=== PATIENT | female | born 2000 | race Caucasian/White ===

== ENCOUNTER 2019-04-10 19:57 | Emergency (ER) | payer OTHER ==
[~2019-04-10] VITALS: Ht 165.1 cm; Wt 82.6 kg
[2019-04-10 21:15] LABS: BASOPHILS # (AUTO) 0.09 x10^3/uL (0-0.3); BASOPHILS % (AUTO) 1 % (0-1); EOSINOPHILS % (AUTO) 2 % (1-7); LYMPHOCYTES # (AUTO) 2.49 x10^3/uL (1-6.1); LYMPHOCYTES % (AUTO) 20 % (22-44); MD NO; MEAN CORPUSCULAR HEMOGLOBIN 28.8 pg (27.0-34.8); MEAN CORPUSCULAR VOLUME 87.3 fL (80-100); MEAN PLATELET VOLUME 8.7 fL (7.4-10.4); MONOCYTES # (AUTO) 0.99 x10^3/uL (0-1.4); MONOCYTES % (AUTO) 8 % (2-9); NEUTROPHILS # (AUTO) 8.57 x10^3/uL (1.8-8.0); NEUTROPHILS % (AUTO) 69 % (42-75); PLATELET COUNT 322 x10^3/uL (130-400); RED BLOOD COUNT 5.07 x10^6/uL (3.82-5.3); RED CELL DISTRIBUTION WIDTH 14.9 % (9.6-15.2)
[2019-04-10 21:23] LABS: ALANINE AMINOTRANSFERASE 31 U/L (12-78); ANION GAP 5 mmol/L (5-15); CALCIUM 9.3 mg/dL (8.5-10.1); CHLORIDE 109 mmol/L (98-107); CREATININE 0.69 mg/dL (0.55-1.02)
[2019-04-10 21:27] LABS: CULTURE INDICATED? YES; MICROSCOPIC INDICATED
[2019-04-10 21:27] LABS: ALKALINE PHOSPHATASE 131 U/L (45-117); BILIRUBIN,TOTAL 0.4 mg/dL (0.2-1.0); TOTAL PROTEIN 8.7 g/dL (6.4-8.2)
--- NOTE | 2019-04-10 22:15 | NUR ---
pt to room from lobby
[2019-04-10 22:41] VITALS: BP 125/75
--- NOTE | 2019-04-10 22:41 | NUR ---
MONITORING EQUIPMENT APPLIED. ALL VITALS STABLE. CHART UP FOR RECHECK
--- NOTE | 2019-04-11 00:08 | NUR ---
Patient/Caregiver given discharge instructions and they have confirmed that they understand the instructions. Patient ambulatory with steady gait.
== END 2019-04-11 00:45 | disposition home or self-care (01) ==
LOC: ED 04-11 00:05
DX: O03.9 Complete or unspecified spontaneous abortion without complication (principal); O23.11 Infections of bladder in pregnancy, first trimester; Z3A.01 Less than 8 weeks gestation of pregnancy
CPT/HCPCS: 36415; 76801; 80053; 81001; 84702; 85025; 86901; 87086; 99284